=== PATIENT | male | born 1970 | race Hispanic/Latino ===

== ENCOUNTER 2021-09-24 08:42 | Emergency (ER) | payer BC, OTHER ==
[~2021-09-24] VITALS: Ht 167.6 cm; Wt 117.9 kg
[2021-09-24 09:20] LABS: INFLUENZA TYPE A NEGATIVE FOR TYPE A (NEG)
[2021-09-24 09:21] LABS: INFLUENZA TYPE B NEGATIVE FOR TYPE B (NEG)
[2021-09-24] MEDS ORDERED: ONDANSETRON ODT 4MG TAB ONE (09:21)
[2021-09-24] MEDS ORDERED: ACET-66 PO (09:28)
[2021-09-24] MEDS ORDERED: FAMO20TA8 PO (09:28)
[2021-09-24] MEDS ORDERED: FLUT16H NASAL (09:28)
[2021-09-24 09:38] VITALS: BP 132/86
== END 2021-09-24 09:39 | disposition home or self-care (01) ==
LOC: EDH 08:42
DX: U07.1 COVID-19 (principal); I10 Essential (primary) hypertension
CPT/HCPCS: 87635; 87804 ×2; 99283; C9803